=== PATIENT | female | born 1975 | race American Indian/Alaskan Native ===

== ENCOUNTER 2017-04-14 13:45 | Outpatient (CLI) | payer OTHER ==
--- NOTE | 2017-04-14 14:43 | XRay Report ---
XRAY LEFT WRIST FOUR VIEWS:04/14/17 13:45:00 CLINICAL: Left wrist pain. FINDINGS: The wrist is hyperextended. Normal carpal bones. No fracture or dislocation. The distal radius and ulna are normal. The imaged portions of the metacarpals are normal. Normal soft tissues. IMPRESSION: Negative study.
== END 2017-04-14 13:46 | disposition home or self-care (01) ==
LOC: SPVIMAG 13:45
PROVIDERS: ATTEND Orthopaedic Surgery Sports Medicine
DX: M25.532 Pain in left wrist (principal)

== ENCOUNTER 2021-06-21 09:45 | Observation (INO) | payer OTHER ==
--- NOTE | 2021-06-11 15:28 | History and Physical Report ---
History of Present Illness Date of examination: 06/11/21 History of present illness: 45 yo with menorrhagia is for robotic hysterectomy and B/L salpingectomy on 06/21/21. Pt has a BTL hx and had an EM ablation in 2019. It helped but only briefly as irreg heavy and prolonged bleeding recurred. Hgn 13.2 in Nov. U/S and EMBx WNL as well. Past History Past Medical History: asthma, hypertension, other (Depression, HSV 2, anemia) Past Surgical History: other (abdominoplasty, BTL, EM ablation, TAB) Social history: no significant social history Review of Systems All systems: negative (except see HPI) - Physical Exam Cardiovascular: Regular rate, No murmurs Lungs: Positive: Clear to auscultation, Normal air movement Abdomen: Positive: normal appearance, soft. Negative: tenderness Vulva: both: normal Vagina: Positive: normal moisture. Negative: discharge Cervix: Negative: lesion, discharge Uterus: Positive: normal size, normal contour Adnexa: both: normal Results All other labs normal. Assessment and Plan - Patient Problems (1) Menorrhagia Status: Acute Plan to address problem: PT for RAH and B/L salpingectomy on 06/21. PT fully consented for surgery. R/B/A d/w pt. PT understands and accepts this and agrees to proceed with surgery.
[2021-06-17 10:39] LABS: Hematocrit 39.9 % (30.3-42.9); Hemoglobin 12.7 gm/dl (10.1-14.3); Mean Corpuscular HGB Conc 32 % (30-34); Mean Corpuscular Volume 86 fl (79-97); Platelet Count 245 K/mm3 (140-440); Red Blood Count 4.66 M/mm3 (3.65-5.03); Red Cell Distribution Width 18.4 % (13.2-15.2)
[2021-06-17 10:53] LABS: Calcium 9.9 mg/dL (8.4-10.2)
[2021-06-17 11:44] LABS: Band Neutrophils # (Manual) 0.1 K/mm3; Basophils % (Manual) 0 % (0.0-1.8); Total Cells Counted 100
[2021-06-17 11:46] LABS: Platelet Estimate Consistent w Auto; RBC Morphology Normal
--- NOTE | 2021-06-17 12:21 | Anesthesia Consultation ---
Anesthesia Consult and Med Hx Date of service: 06/21/21 - Airway Anesthetic Teeth Evaluation: Bridges ROM Head & Neck: Adequate Mental/Hyoid Distance: Adequate Mallampati Class: Class III Intubation Access Assessment: Probably Good - Pre-Operative Health Status ASA Pre-Surgery Classification: ASA2 Proposed Anesthetic Plan: General Nerve Block: TAP - Pulmonary Hx Asthma: Yes (Last used inhaler 4mos ago with exercise) Hx Sleep Apnea: No - Cardiovascular System Hx Hypertension: Yes - Central Nervous System Hx Psychiatric Problems: Yes (Depression) - Gastrointestinal Hx Gastroesophageal Reflux Disease: Yes (Dietary) - Hematic Hx Anemia: Yes Hx Sickle Cell Disease: No - Other Systems Hx Alcohol Use: Yes (Occas) Hx Substance Use: Yes (Marijuana last used 1 year ago) Hx Cancer: No Hx Obesity: Yes - Additional Comments Anesthesia Medical History Comments: Yojana colin 2020
[~2021-06-21 09:45] MED LIST: ACETAMINOPHEN 500 MG TAB PO ONE; CELECOXIB 200 MG CAP PO NR; MAGNESIUM OXIDE 400 MG TAB PO ONE; MIDAZOLAM 2 MG/2 ML INJ IV NR; fentaNYL 100 MCG/2 ML INJ IV ONE
[2021-06-21] MEDS ORDERED: MAGNESIUM OXIDE 400 MG TAB PO ONE (09:52)
[2021-06-21] MEDS ORDERED: ACETAMINOPHEN 500 MG TAB ONE (09:52)
[2021-06-21] MEDS: LACTATED RINGERS 1,000 ML IV SCH ×2 (10:25→23:33)
[2021-06-21] MEDS ORDERED: BUPIVACAINE/PF (0.5%) 5 MG/1 ML 30 ML VIAL INFILTRATI ONE ×2 (10:44→13:14)
[2021-06-21] MEDS ORDERED: NEOMY 40 MG/POLYMYXIN B 200,000 UNITS/ML (GU) AMPULE IR ONE ×2 (10:45→13:53)
[2021-06-21] MEDS ORDERED: ceFAZolin/Water 2 GM/20 ML 2 GM/20 ML SYRINGE IV ONE (11:02)
[2021-06-21] MEDS ORDERED: KETAMINE/STERILE WATER 50 MG/ML SYRINGE ONE (11:29)
[2021-06-21] MEDS ORDERED: ROCURONIUM 50 MG/5 ML INJ IV ONE (11:29)
[2021-06-21] MEDS ORDERED: propofoL 200 MG/20 ML VIAL IV ONE (11:29)
[2021-06-21] MEDS ORDERED: LIDOCAINE MPF (2%) 20 MG/1 ML VIAL 5 ML ONE (11:29)
[2021-06-21] MEDS ORDERED: fentaNYL 100 MCG/2 ML INJ ONE ×2 (11:29→11:42)
[2021-06-21] MEDS ORDERED: ONDANSETRON 4 MG/2 ML INJ IV PRN (11:41)
[2021-06-21] MEDS ORDERED: HYDROmorphone 1 MG/1 ML INJ IV PRN (11:41)
--- NOTE | 2021-06-21 11:41 | Anesthesia Day of Surgery ---
Anesthesia Day of Surgery - Day of Surgery Patient Examined: Yes Patient H&P Reviewed: Yes Patient is NPO: Yes
[2021-06-21] MEDS ORDERED: BUPIVACAINE/PF (0.25%) 2.5 MG/ML 30 ML VIAL INFILTRATI ONE (11:43)
[2021-06-21] MEDS ORDERED: dexAMETHasone 4 MG/ML VIAL ONE (11:43)
[2021-06-21] MEDS ORDERED: ceFAZolin/STERILE WATER 2 GM/20 ML SYRINGE IV NR (12:00)
[2021-06-21] MEDS ORDERED: dexAMETHasone 20 MG/5 ML VIAL ONE (12:49)
[2021-06-21] MEDS ORDERED: ONDANSETRON 4 MG/2 ML INJ ONE (12:49)
[2021-06-21] MEDS ORDERED: GLYCOPYRROLATE 0.4 MG/2 ML INJ ONE (12:49)
[2021-06-21] MEDS ORDERED: NEOSTIGMINE 10MG/10 ML INJ MDV ONE (12:49)
[2021-06-21] MEDS ORDERED: SODIUM CHLORIDE 0.9% IRRIG SOLN 2000 ML IR ONE (13:13)
[2021-06-21] MEDS ORDERED: SODIUM CHLORIDE 0.9% IRR 1,500 ML BOTTLE IR ONE (13:13)
[2021-06-21] MEDS ORDERED: BUPIVACAINE/PF (0.5%) 5 MG/1 ML 10 ML VIAL INFILTRATI ONE ×3 (13:22→13:24)
[2021-06-21] MEDS ORDERED: ACETAMINOPHEN 325 MG TAB PO PRN (14:54)
[2021-06-21] MEDS ORDERED: IBUPROFEN 800 MG TAB PO PRN (14:54)
--- NOTE | 2021-06-21 15:04 | Post Operative Note ---
Date of procedure: 06/21/21 Pre-op diagnosis: menorrhagia Post-op diagnosis: same (pathology pending) Findings: Patient has an essentially normal size uterus. May be slightly enlarged. It was globular. Tubes and ovaries were within normal limits although patient history of a tubal ligation. Patient has some mild to moderate scarring of the bowel in the left and pelvic region. 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 No other anomalies noted. Procedure: Indication: This a 45-year-old with irregular menses and menorrhagia despite having an endometrial ablation in the past. Patient negative endometrial biopsy in the office. As result patient is here today for her robotic hysterectomy and bilateral salpingectomy. Procedure: Patient was taken to the operating room and prepped and draped in the usual fashion. Attention was first turned vaginally for placement of the V care cup uterine manipulator. This was done in the usual fashion including anchoring stitches at 12:00 and 6:00 of the cervical stroma with 0 Vicryl. The large Vcare cup was chosen and the manipulator was placed successfully and without difficulty. Attention was now turned abdominally. In the left upper quadrant about 2 fingerbreadths inferior to the costal margin in the midclavicular line, a 5 mm incision was made. The 5 mm trocar was successfully placed and the placement was confirmed with the camera. Attention was now turned to the placement of the 3 robotic trocars. The 2 lower quadrant ones were about 2 cm superior and medial to the ASIS on each side. These were 8 mm ports. They were placed under direct visualization with without difficulty. The 12 mm umbilical trocar site was also placed under direct visualization successfully and without difficulty. At this point the patient was placed in steep Trendelenburg. The robot was docked to the trochars. At this point I broke scrub and proceeded to the da Anaya console. First the pelvis was assessed and findings noted above. Good ureteral per istalsis was noted bilaterally both at the beginning of the case and at the end of the case. Attention was first turned to the left pelvic region where all the above-noted adhesions were noted. Those were lysed with robotic scissors and was done success without difficulty. Good hemostasis noted. Attention was now turned to the left adnexa where the fallopian tube was resected from its attachments using the robotic vessel sealer. This dissection was carried to the round ligament. The ovarian ligament was also clamped cauterized and resected with the vessel sealer. The round ligament was also clamped cauterized and cut with the vessel sealer. Good hemostasis was noted. This was then done in the exact same fashion on the right side with equal success and good hemostasis. At this point attention was turned the bladder flap which was created using EndoShears. Good hemostasis noted. The anterior colpotomy ring indentation was then identified from the V care cup. Colpotomy incision was made until the green Vcare cup was visualized. This incision was then extended bilaterally. Attention was then turned posteriorly where the posterior colpotomy ring indentation was identified and the colpotomy incision was made. The colpotomy incision posteriorly was then extended bilaterally. The posterior peritoneal flap was created at this point bilaterally. Good hemostasis noted. At this point attention was turned to the the uterine vasculature which was clamped cauterized and cut using the vessel sealer on both sides. After this was completed the colpotomy was completed at the 3:00 and 9:00 positions. At this point the colpotomy was completed 360 degrees. At this point the uterus and tubes were successfully removed vaginally without difficulty. Attention was turned to closure of the vaginal cuff which was done using 0 V-Loc in a running fashion. Vaginal cuff was closed successfully and without difficulty. At this point the pelvis was well irrigated. The abdomen was desufflated and good hemostasis was noted. Abdomen was reinsufflated. Surgicel was then applied to all the areas of dissection. At this point the robot was undocked from the trochars. I scrubbed back in and first inspected the vaginal cuff both visually and with palpation. Good hemostasis noted and good integrity of the cuff was noted. Laparoscopically good hemostasis still noted throughout. The 12 mm trocar was removed and that site was closed using the Jovanny Mesa device and a 0 Vicryl. At this point the abdomen was fully desufflated. The other 3 trochars were removed and those trocar sites were closed using 4-0 Vicryl in a subcuticular fashion as well as the 12 mm site. The procedure was concluded at this point. Patient tolerated the procedure well. All instrument lap counts were correct. Patient taken to the recovery room in stable condition. Anesthesia: CINDY Surgeon: JESENIA GANDHI Intelligence Intern: BOAZ NELSON Estimated blood loss: minimal (25 cc) Pathology: list (Uterus and tubes) Specimen disposition: to lab Condition: stable Disposition: PACU
[2021-06-21] MEDS: HYDROmorphone 1 MG/1 ML INJ IV PRN ×3 (15:15→16:05)
[2021-06-21] MEDS: oxyCODONE /ACETAMINOPHEN 5-325MG TAB PO PRN ×2 (17:16→23:33)
--- NOTE | 2021-06-21 19:04 | Post Anesthesia Evaluation ---
- Post Anesthesia Evaluation Patient Participated: Yes Airway Patent: Yes Stable Respiratory Function: Yes Nausea/Vomiting: No Temp > 96.8F: Yes Pain Manageable: Yes Adequeate Hydration: Yes Anesthesia Complications: No Block Receding Appropriately: Yes Patient on Ventilator: No
[2021-06-21] MEDS ORDERED: HYDROmorphone 2 MG/1 ML INJ IV ONE (19:31)
[2021-06-21] MEDS: ONDANSETRON 4 MG/2 ML INJ IV PRN (19:37)
[2021-06-22] MEDS: ONDANSETRON 4 MG/2 ML INJ IV PRN (02:50)
[2021-06-22 05:21] LABS: Hematocrit 36.8 % (30.3-42.9); Hemoglobin 11.8 gm/dl (10.1-14.3)
[2021-06-22] MEDS: LACTATED RINGERS 1,000 ML IV SCH (05:47)
[2021-06-22] MEDS: oxyCODONE /ACETAMINOPHEN 5-325MG TAB PO PRN ×2 (06:30→16:48)
--- NOTE | 2021-06-22 07:17 | Progress Note ---
Subjective - Subjective Date of service: 06/22/21 Interval history: POD#1 Robotic Hysterecotmy Patient complains of nausea and abdominal pain ambulatory afebrile tolerating PO postop labs stable PE: see holiness incision C/D/I Abd: soft, nt, no rebound or guarding Negative peritoneal sign Plan for today: contiue routine postop care Painmeds Pt made full admit DC home in AM Ella Suh MD Patient reports: appetite normal, voiding normally, flatus, pain poorly cont rolled, ambulating normally Objective - Vital Signs Latest vital signs: Vital Signs Temp Pulse Resp BP BP Pulse Ox 06/22/21 05:14 98.4 F 73 20 131/72 99 06/22/21 00:44 98.4 F 83 20 138/79 97 06/21/21 21:05 97 06/21/21 20:17 98.6 F 76 20 143/74 87 06/21/21 18:03 98 06/21/21 16:50 98.7 F 79 18 150/77 98 06/21/21 16:45 97.7 F 80 15 150/77 97 06/21/21 16:30 76 16 148/78 98 06/21/21 16:15 79 13 143/81 97 06/21/21 16:00 75 14 147/71 96 06/21/21 15:45 85 12 136/76 97 06/21/21 15:30 80 15 153/74 98 06/21/21 15:14 84 13 150/80 97 06/21/21 15:09 93 H 14 171/84 100 06/21/21 15:04 97.0 F L 129 H 12 161/68 100 06/21/21 12:16 14 06/21/21 11:55 74 11 L 119/76 99 06/21/21 11:50 79 14 120/66 98 06/21/21 11:45 80 12 129/78 100 06/21/21 10:47 16 06/21/21 10:20 16 06/21/21 10:10 99.1 F 77 16 129/82 98 Intake and Output 06/21/21 06/21/21 06/22/21 15:59 23:59 07:59 Intake Total 250 1000 899.167 Output Total 50 450 875 Balance 200 550 24.167 Intake: IV 250 1000 779.167 Lactated Ringers 1,000 ml 1000 779.167 @ 125 mls/hr IV DIRECT BALJIT Rx#:[id number] Intake, Free Water 120 Output: Urine 50 150 800 Void 150 800 Emesis 300 75 Other: Total, Output Amount 150 300 Voiding Method Toilet Toilet # Voids Void 1 1 - Exam Breasts: Present: deferred Cardiovascular: Present: Regular rate Lungs: Present: Clear to auscultation Abdomen: Present: normal appearance, soft, normal bowel sounds Extremities: Present: normal Deep Tendon Reflex Grade: Normal +2 Incision: Present: normal, intact, dressed
[2021-06-22] MEDS ORDERED: MORPHINE 4 MG/1 ML INJ IV SCH (07:30)
[2021-06-22] MEDS: METOCLOPRAMIDE 10 MG/2 ML INJ IV PRN ×3 (08:00→20:00)
--- NOTE | 2021-06-22 10:46 | Discharge Summary ---
Providers - Providers Date of Admission: 06/21/21 14:54 Date of discharge: 06/22/21 Attending physician: JESENIA GANDHI Primary care physician: BOAZ PINA Hospitalization Procedure: other (robotic hysterectomy with bilateral salpingectomy) Condition at discharge: Stable Disposition: 01 HOME / SELF CARE / HOMELESS - Discharge Diagnoses (1) Menorrhagia Status: Resolved Plan - Discharge Medications Prescriptions: Ibuprofen [Motrin 800 MG tab] 800 mg PO Q8H PRN #30 tablet PRN Reason: Pain, Moderate (4-6) oxyCODONE /ACETAMINOPHEN [Percocet 5/325 mg] 1 tab PO Q6H PRN #30 tablet PRN Reason: Pain, Moderate (4-6) - Provider Discharge Summary Activity: no sex for 6 weeks Diet: routine Instructions: routine Additional instructions: [] Smoking cessation referral if applicable(refer to patient education folder for contact #) [] Refer to [facility] Booklet Call your doctor immediately for: * Fever > 100.5 * Heavy vaginal bleeding ( >1 pad per hour) * Severe persistent headache * Shortness of breath * Reddened, hot, painful area to leg or breast * Drainage or odor from incision. * Keep incision clean and dry at all times and follow doctor's instructions regarding bathing/showering - Follow up plan Follow up: JESENIA GANDHI MD [Staff Physician] - 14 Days
[2021-06-22] MEDS: TRIAMTER/HCTZ 37.5-25 MG TAB PO SCH (11:54)
[2021-06-22] MEDS: LISINOPRIL 10 MG TAB PO SCH (11:54)
[2021-06-22] MEDS: MORPHINE 4 MG/1 ML INJ IV PRN ×2 (13:06→19:45)
[2021-06-22] MEDS ORDERED: LIP THERAPY VASELINE TP PRN (15:00)
[2021-06-22] MEDS: ALUM-MAG HYDROXIDE-SIMETHICONE 200-200-20MG/5ML ORAL LIQD 30 ML PO PRN ×2 (17:09→20:02)
[2021-06-23] MEDS: oxyCODONE /ACETAMINOPHEN 5-325MG TAB PO PRN ×2 (00:23→06:00)
[2021-06-23] MEDS: ALUM-MAG HYDROXIDE-SIMETHICONE 200-200-20MG/5ML ORAL LIQD 30 ML PO PRN ×3 (00:26→08:01)
[2021-06-23] MEDS: MORPHINE 4 MG/1 ML INJ IV PRN ×2 (02:17→08:01)
[2021-06-23] MEDS: METOCLOPRAMIDE 10 MG/2 ML INJ IV PRN ×2 (02:17→08:01)
[2021-06-23] MEDS: TRIAMTER/HCTZ 37.5-25 MG TAB PO SCH (11:04)
[2021-06-23] MEDS: LISINOPRIL 10 MG TAB PO SCH (11:05)
[2021-06-23 12:08] VITALS: BP 132/88
== END 2021-06-23 12:15 | disposition home or self-care (01) ==
LOC: OR 09:45 → OB 14:54
PROVIDERS: ADMIT Obstetrics & Gynecology; ATTEND Obstetrics & Gynecology
DX: N92.0 Excessive and frequent menstruation with regular cycle (principal); Z20.822 Contact with and (suspected) exposure to COVID-19; I10 Essential (primary) hypertension; J45.909 Unspecified asthma, uncomplicated; F32.9 Major depressive disorder, single episode, unspecified; D64.9 Anemia, unspecified; Z98.51 Tubal ligation status; Z79.899 Other long term (current) drug therapy; Z98.890 Other specified postprocedural states; Z90.710 Acquired absence of both cervix and uterus
CPT/HCPCS: 36415; 58552; 64488; 80048; 84703; 85007; 85014; 85018; 85025; 86850; 86900; 86901; 88307; 96374; 96375; 96376; G0378; J0690; J1100; J1170; J1815; J2250; J2270; J2405; J2704; J2710; J2765; J3010; J3490; J7120; S2900; U0003; 64450